=== PATIENT | male | born 1990 | race Caucasian/White ===

== ENCOUNTER 2023-11-22 08:31 | Outpatient (CLI) | payer BC, SELFPAY | END 2023-11-22 08:32 | disposition home or self-care (01) | PROVIDERS: Visit Provider Registered Nurse | DX: Z00.00 Encounter for general adult medical examination without abnormal findings (principal); Z13.6 Encounter for screening for cardiovascular disorders; Z13.1 Encounter for screening for diabetes mellitus | CPT/HCPCS: 80061; 82947 ==

== ENCOUNTER 2024-11-19 07:40 | Outpatient (CLI) | payer BC, SELFPAY | END 2024-11-19 07:41 | disposition home or self-care (01) | LOC: NFLDREF 11-24 11:13 | PROVIDERS: Referring Provider Registered Nurse; Visit Provider Family Medicine | DX: E78.5 Hyperlipidemia, unspecified (principal) | CPT/HCPCS: 80061 ==